=== PATIENT | female | born 1960 | race Caucasian/White ===

== ENCOUNTER 2023-12-09 13:05 | Outpatient (AMB) | payer OTHER, MEDICAID, SELFPAY ==
[2023-12-09 13:21] VITALS: BP 156/71; PULSE 53; RESP 18; TEMP 36.1; O2SAT 97; BMI 31.1
--- NOTE | 2023-12-09 13:21 | ORTHONT_ITS ---
Vital signs 12/09/23 13:21 Height 1.65 m Height Method Stated Weight 84.878 kg Weight Measurement Method Standing Scale BMI 31.1 BP 156/71 H Blood Pressure Source Automatic Cuff Blood Pressure Location Right Upper Arm Position Sitting Respiration 18 Pulse 53 L Pulse Source Monitor Temp 96.9 F Temp Source Temporal Artery Scan Pulse Oximetry (%) 97 Oxygen Delivery Method Room Air Med/Allergies Allergies & Medications Allergies No Known Allergies Allergy (Verified 12/09/23 13:24) Medication Reconciliation ibuprofen 800 mg tablet 800 mg PO Q8H 12/09/23 [History Confirmed 12/09/23] meloxicam 7.5 mg tablet 7.5 mg PO QDAY #45 tabs 12/09/23 [Rx] Subjective Visit Visit for: new patient and knee Immunization / Flu Flu Vaccine in the Last 12 Months: No Flu Vaccine Exclusion Criteria: Refused by Patient History of Present Illness Chief complaint: KNEE PAIN Jac is a pleasant 63-year-old female with bilateral knee pain. The left is a little worse than the right. This been ongoing for several years. She has previously seen Dr. Eric and had 2 injections. The only last about 1 month. She is tried ibuprofen. She has been unable to go to physical therapy as she has a very busy work schedule Personal History Occupation: [employer] Red flag PMH: none Pain Pain level (0-10): 4 Pain duration: COMES & GOES Pain location: inside (medial), outside (lateral), anterior and posterior Pain quality: dull and aching Pain timing: increases with activity Associated signs & symptoms: none Ambulatory data Ambulatory device: none Treatments Improvement with previous injections: No Improvement with PT: No Improvement with NSAIDS: n/a Review of Systems Review of Systems: All systems negative unless otherwise noted in HPI. Exam Exam Patient is in no acute distress and is cooperative with the examination today. Breathing is nonlabored. In no respiratory distress. Bilateral extremities were evaluated and demonstrates sensation intact to light touch. Palpable pedal pulses are present. No significant edema is present. Bilateral hips were examined. The patient has no pain with log roll of the hips. Internal rotation to 30 degrees and external rotation to 30 degrees is painless. Negative FADIR. The left knee was examined. The left knee is in [varus] alignment. Range of motion from [0-115] degrees. Knee is stable to varus and valgus as well as AP translation with <5mm. Patient has a [negative] McMurrays. There is [no] pain with patellofemoral compression and [no] crepitus noted. The knee is [tender] to palpation [medially]. The right knee was also examined. The right knee is in [varus] alignment. Range of motion from [0-120] degrees. Knee is stable to varus and valgus as well as AP translation with <5mm. Patient has a [negative] McMurrays. There is [no] pain with patellofemoral compression and [no] crepitus noted. The knee is [tender] to palpation [medially]. Patient has no recent weightbearing x-rays. We will order them Assessment and Plan Problem List (1) Degenerative arthritis of knee, bilateral: Status: Acute Plan Patient is a pleasant 63-year-old female with bilateral knee pain and bilateral knee osteoarthritis. We would like to get recent weightbearing x-rays to assess the severity. She is being seen by Dr. Eric in the past. We have also sent her prescription for meloxicam. We will see her in approximately 1 week to discuss different treatment options Office Procedures GNS Level of Care Nursing/Assessment Patient Status: Initial/New Patient Nursing Assessment/Reassesment: Medication Reconciliation, Update PMH in EMR and Vital Signs Coordination of Care: Complex Care and Chronic Disease 1-5, Education Complex Pt/Fam, Consent,records obtained, informed consent, Results/Orders obtained and Staff clarify orders New Patient Charge New Patient Point Assignment: [id number] New Patient Point Charge: EMERY GRINDER Level 3 ([id number]) Past Medical History Past Medical History Have you ever been diagnosed with any of the following: Respiratory Problems Smoking: No Smoking Exposure: No
== END 2023-12-09 13:39 | disposition home or self-care (01) ==
LOC: HODSRG 13:05
PROVIDERS: Supervising Provider Orthopaedic Surgery Adult Reconstructive Orthopaedic Surgery; Visit Provider Orthopaedic Surgery Adult Reconstructive Orthopaedic Surgery
DX: M17.0 Bilateral primary osteoarthritis of knee (principal); M25.562 Pain in left knee; M25.561 Pain in right knee
CPT/HCPCS: 99203; G0463

== ENCOUNTER 2023-12-30 10:37 | Outpatient (AMB) | payer OTHER, MEDICAID, SELFPAY ==
--- NOTE | 2023-12-30 11:12 | ORTHONT_ITS ---
Vital signs 12/30/23 11:19 Height 1.65 m Height Method Stated Weight 84.623 kg Weight Measurement Method Standing Scale BMI 31.1 BP 146/80 H Blood Pressure Source Automatic Cuff Blood Pressure Location Right Upper Arm Position Sitting Respiration 19 Pulse 52 L Pulse Source Monitor Temp 98.2 F Temp Source Temporal Artery Scan Pulse Oximetry (%) 96 Oxygen Delivery Method Room Air Med/Allergies Allergies & Medications Allergies No Known Allergies Allergy (Verified 12/30/23 11:20) Subjective Visit Visit for: follow up visit, knee (BILATERAL) and injections Immunization / Flu Flu Vaccine in the Last 12 Months: No Flu Vaccine Exclusion Criteria: Refused by Patient History of Present Illness Chief complaint: KNEE PAIN Jac is a pleasant 63-year-old female with bilateral knee pain. The left is a little worse than the right. This been ongoing for several years. She has previously seen Dr. Eric and had 2 injections. They only last about 1 month. Personal History Occupation: [employer] PMH: none Pain Pain level (0-10): 4 Pain duration: ALL DAY Pain location: inside (medial), outside (lateral), anterior and posterior Pain quality: sharp, dull and aching Pain timing: increases with activity Associated signs & symptoms: none Ambulatory data Ambulatory device: none Treatments Improvement with previous injections: No Improvement with PT: No Improvement with NSAIDS: n/a Review of Systems Review of Systems: All systems negative unless otherwise noted in HPI. Exam Exam Patient is in no acute distress and is cooperative with the examination today. Breathing is nonlabored. In no respiratory distress. Bilateral extremities were evaluated and demonstrates sensation intact to light touch. Palpable pedal pulses are present. No significant edema is present. Bilateral hips were examined. The patient has no pain with log roll of the hips. Internal rotation to 30 degrees and external rotation to 30 degrees is painless. Negative FADIR. The left knee was examined. The left knee is in [varus] alignment. Range of motion from [0-115] degrees. Knee is stable to varus and valgus as well as AP translation with <5mm. Patient has a [negative] McMurrays. There is [no] pain with patellofemoral compression and [no] crepitus noted. The knee is [tender] to palpation [medially]. The right knee was also examined. The right knee is in [varus] alignment. Range of motion from [0-120] degrees. Knee is stable to varus and valgus as well as AP translation with <5mm. Patient has a [negative] McMurrays. There is [no] pain with patellofemoral compression and [no] crepitus noted. The knee is [tender] to palpation [medially]. X-rays demonstrate mild medial joint space narrowing. There are minimal osteophytes Assessment and Plan Problem List (1) Degenerative arthritis of knee, bilateral: Status: Acute Plan Patient is a pleasant 63-year-old female with bilateral knee pain and bilateral knee osteoarthritis. The arthritis is of mild severity. We discussed nonoperative treatment. She would like bilateral knee cortisone injections Recommend knee cortisone injections as patient would like to proceed with conservative treatment at this time. The risks and benefits of the procedure were reviewed with the patient and patient gave verbal consent to continue with the procedure. Procedure: performed by Dr. Peng Using sterile technique the Bilateral knees were thoroughly prepped with alcohol, and approximately 1 cc of Kenalog 40 mg/mL and 4 cc of 1% lidocaine was injected into each knee without resistance into the medial tibial femoral joint space. The patient tolerated the procedure. Office Procedures GNS Level of Care Nursing/Assessment Patient Status: Established Patient Nursing Assessment/Reassesment: Medication Reconciliation, Update PMH in EMR and Vital Signs Coordination of Care: Complex Care and Chronic Disease 1-5, Education Complex Pt/Fam, Consent,records obtained, informed consent, 1 Ins Authorization, Results/Orders obtained and Staff clarify orders Established Patient Charge Established Patient Point Assignment: 110 Established Patient Point Charge: EP Level 3 (80-115) Surgical Proc/IM SQ injection Major Surgical Procedure: Yes (BILATERAL KNEE INJECTION) Medication Given Medication Given Medication Given: Yes Documented Dose Given: 8 Route: Infiitration Medication Given Medication Given Medication Given: Yes Documented Dose Given: 2 Route: Infiitration Office Meds Xylocaine 10 mg/mL (1 %) injection solution Performing Provider: Alvino Peng MD Performing Location: [facility] Administered by: Alvino Peng MD on 12/30/23 11:21 Dose Route Admin Location Dispensed Lot Number Expiration Date [facility] [employer] 40 mL Infiltration 40 mL [id number] 09/12/26 53958-553-69 [facility] triamcinolone acetonide 40 mg/mL suspension for injection Performing Provider: Alvino Peng MD Performing Location: [facility] Administered by: Alvino Peng MD on 12/30/23 11:21 Dose Route Admin Location Dispensed Lot Number Expiration Date [facility] [employer] 80 mg Infiltration 2 mL [id number] 09/12/25 [address]-3 [employer] Past Medical History Past Medical History Have you ever been diagnosed with any of the following: Respiratory Problems Smoking: No Smoking Exposure: No
[2023-12-30 11:19] VITALS: BP 146/80; PULSE 52; RESP 19; TEMP 36.8; O2SAT 96; BMI 31.1
== END 2023-12-30 11:18 | disposition home or self-care (01) ==
LOC: HODSRG 10:37
PROVIDERS: Supervising Provider Orthopaedic Surgery Adult Reconstructive Orthopaedic Surgery; Visit Provider Orthopaedic Surgery Adult Reconstructive Orthopaedic Surgery
DX: M17.0 Bilateral primary osteoarthritis of knee (principal); M25.562 Pain in left knee; M25.561 Pain in right knee
CPT/HCPCS: 20610; 99213; J3301; J3490; G0463

== ENCOUNTER 2024-04-05 10:09 | Outpatient (AMB) | payer OTHER, MEDICAID, SELFPAY ==
--- NOTE | 2024-04-05 10:36 | ORTHONT_ITS ---
Vital signs 04/05/24 10:37 Height 1.65 m Height Method Stated Weight 86.268 kg Weight Measurement Method Standing Scale BMI 31.6 BP 147/84 H Blood Pressure Source Automatic Cuff Blood Pressure Location Left Upper Arm Position Sitting Respiration 18 Pulse 58 L Pulse Source Monitor Temp 96.5 F L Temp Source Temporal Artery Scan Pulse Oximetry (%) 95 Oxygen Delivery Method Room Air Med/Allergies Allergies & Medications Allergies No Known Allergies Allergy (Verified 04/05/24 10:38) Medication Reconciliation ibuprofen 800 mg tablet 800 mg PO Q8H 12/09/23 [History Confirmed 04/05/24] meloxicam 7.5 mg tablet 7.5 mg PO QDAY #45 tabs 12/09/23 [Rx Confirmed 04/05/24] cyclobenzaprine 5 mg tablet 5 mg PO TID PRN muscle spasm #30 tabs 04/05/24 [Rx Confirmed 04/05/24] methylprednisolone 4 mg tablets in a dose pack (Medrol (Regan)) See Rx Instructions PO PER PKG DIR #21 tabs 04/05/24 [Rx Confirmed 04/05/24] Exam Exam Patient is in no acute distress and is cooperative with the examination today. Breathing is nonlabored. In no respiratory distress. Bilateral extremities were evaluated and demonstrates sensation intact to light touch. Palpable pedal pulses are present. No significant edema is present. Bilateral hips were examined. The patient has no pain with log roll of the hips. Internal rotation to 30 degrees and external rotation to 30 degrees is painless. Negative FADIR. The left knee was examined. The left knee is in [varus] alignment. Range of motion from [0-115] degrees. Knee is stable to varus and valgus as well as AP translation with <5mm. Patient has a [negative] McMurrays. There is [no] pain with patellofemoral compression and [no] crepitus noted. The knee is [tender] to palpation [medially]. The right knee was also examined. The right knee is in [varus] alignment. Range of motion from [0-120] degrees. Knee is stable to varus and valgus as well as AP translation with <5mm. Patient has a [negative] McMurrays. There is [no] pain with patellofemoral compression and [no] crepitus noted. The knee is [tender] to palpation [medially]. X-rays demonstrate mild medial joint space narrowing. There are minimal osteophytes Assessment and Plan Problem List (1) Degenerative arthritis of knee, bilateral: Status: Acute Plan Patient is a pleasant 63-year-old female with bilateral knee pain and bilateral knee osteoarthritis. She is done well with conservative treatment for her knee. She has recently developed radicular symptoms down her leg. She reports the pain is miserable. I prescribed her a Medrol Dosepak as well as a muscle relaxer. We will see how this goes. We will see her in approximately 3 to 4 weeks for follow-up. Office Procedures GNS Level of Care Nursing/Assessment Patient Status: Established Patient Nursing Assessment/Reassesment: Medication Reconciliation, Update PMH in EMR and Vital Signs Coordination of Care: Complex Care and Chronic Disease 1-5, Education Complex Pt/Fam, Consent,records obtained, informed consent, Results/Orders obtained and Staff clarify orders Established Patient Charge Established Patient Point Assignment: 95 Established Patient Point Charge: EP Level 3 (80-115) MA Intake Visit Data Collection New Patient or Established: Established Patient (seen at [facility] within 3 years) Reason for Visit:: BILATERAL KNEE PAIN Seen by Clinical Staff ONLY (RN/MA): No Security Installation Technician Required: No PCP or OBGYN visit in last 3 months: Yes Hx Now: No Do You Feel Safe at Home: Yes Authorities Contacted: N/A Questionairres Past Medical History Past Medical History Have you ever been diagnosed with any of the following: Respiratory Problems Smoking: No Smoking Exposure: No Subjective Visit Visit for: follow up visit and knee (BILATRERAL) Immunization / Flu Flu Vaccine in the Last 12 Months: No Flu Vaccine Exclusion Criteria: No Exclusion Criteria History of Present Illness Chief complaint: Left thigh pain Rashmi is a pleasant 63-year-old female with bilateral knee pain. The knees are she has done really well with conservative treatment. She reports that 1 week ago she started getting radicular pain down her thigh. It feels like a charley horse. It appears to be coming from her back as she pulled her back recently as well. Pain Pain level (0-10): 0 Pain location: other (specify) (THIGH) Ambulatory data Ambulatory device: none Treatments Improvement with previous injections: Yes Improvement with PT: No Improvement with NSAIDS: no Review of Systems Review of Systems: All systems negative unless otherwise noted in HPI.
[2024-04-05 10:37] VITALS: BP 147/84; PULSE 58; RESP 18; TEMP 35.8; O2SAT 95; BMI 31.6
== END 2024-04-05 10:46 | disposition home or self-care (01) ==
LOC: HODSRG 10:09
PROVIDERS: PCP Physician Assistant Medical; Referring Provider Physician Assistant Medical; Supervising Provider Orthopaedic Surgery Adult Reconstructive Orthopaedic Surgery; Visit Provider Orthopaedic Surgery Adult Reconstructive Orthopaedic Surgery
DX: M17.0 Bilateral primary osteoarthritis of knee (principal); M25.562 Pain in left knee; M25.561 Pain in right knee
CPT/HCPCS: 99213; G0463

== ENCOUNTER 2024-05-04 10:28 | Outpatient (AMB) | payer OTHER, MEDICAID, SELFPAY ==
[2024-05-04 10:45] VITALS: BP 144/82; PULSE 59; RESP 18; TEMP 36.6; O2SAT 94; BMI 32.0
--- NOTE | 2024-05-04 10:45 | PD.ORTHCLVIS ---
Vital signs 05/04/24 10:45 Height 1.65 m Height Method Stated Weight 87.146 kg Weight Measurement Method Standing Scale BMI 32.0 BP 144/82 H Blood Pressure Source Automatic Cuff Blood Pressure Location Right Upper Arm Position Sitting Respiration 18 Pulse 59 L Pulse Source Monitor Temp 97.8 F Temp Source Temporal Artery Scan Pulse Oximetry (%) 94 L Oxygen Delivery Method Room Air Med/Allergies Allergies & Medications Allergies No Known Allergies Allergy (Verified 05/04/24 10:46) Medication Reconciliation ibuprofen 800 mg tablet 800 mg PO Q8H 12/09/23 [History Confirmed 05/04/24] meloxicam 7.5 mg tablet 7.5 mg PO QDAY #45 tabs 12/09/23 [Rx Confirmed 05/04/24] cyclobenzaprine 5 mg tablet 5 mg PO TID PRN muscle spasm #30 tabs 04/05/24 [Rx Confirmed 05/04/24] methylprednisolone 4 mg tablets in a dose pack (Medrol (Regan)) See Rx Instructions PO PER PKG DIR #21 tabs 04/05/24 [Rx Confirmed 05/04/24] celecoxib 200 mg capsule 200 mg PO BID #60 caps 05/04/24 [Rx] Exam Exam Patient is in no acute distress and is cooperative with the examination today. Breathing is nonlabored. In no respiratory distress. Bilateral extremities were evaluated and demonstrates sensation intact to light touch. Palpable pedal pulses are present. No significant edema is present. Bilateral hips were examined. The patient has no pain with log roll of the hips. Internal rotation to 30 degrees and external rotation to 30 degrees is painless. Negative FADIR. The left knee was examined. The left knee is in [varus] alignment. Range of motion from [0-115] degrees. Knee is stable to varus and valgus as well as AP translation with <5mm. Patient has a [negative] McMurrays. There is [no] pain with patellofemoral compression and [no] crepitus noted. The knee is [tender] to palpation [medially]. The right knee was also examined. The right knee is in [varus] alignment. Range of motion from [0-120] degrees. Knee is stable to varus and valgus as well as AP translation with <5mm. Patient has a [negative] McMurrays. There is [no] pain with patellofemoral compression and [no] crepitus noted. The knee is [tender] to palpation [medially]. X-rays demonstrate mild medial joint space narrowing. There are minimal osteophytes Assessment and Plan Problem List (1) Degenerative arthritis of knee, bilateral: Status: Acute Plan Patient is a pleasant 63-year-old female with bilateral knee pain and bilateral knee osteoarthritis. She has done well with conservative treatment for her knee. She would like bilateral knee injections today Recommend knee cortisone injections as patient would like to proceed with conservative treatment at this time. The risks and benefits of the procedure were reviewed with the patient and patient gave verbal consent to continue with the procedure. Procedure: performed by Dr. Peng Using sterile technique the Bilateral knees were thoroughly prepped with alcohol, and approximately 1 cc of Kenalog 40 mg/mL and 4 cc of 1% lidocaine was injected into each knee without resistance into the medial tibial femoral joint space. The patient tolerated the procedure. Office Procedures GNS Level of Care Nursing/Assessment Patient Status: Established Patient Nursing Assessment/Reassesment: Medication Reconciliation, Update PMH in EMR and Vital Signs Coordination of Care: Complex Care and Chronic Disease 1-5, Education Complex Pt/Fam, Consent,records obtained, informed consent, Results/Orders obtained and Staff clarify orders Established Patient Charge Established Patient Point Assignment: 95 Established Patient Point Charge: EP Level 3 (80-115) MA Intake Visit Data Collection New Patient or Established: Established Patient (seen at [facility] within 3 years) Reason for Visit:: FOLLOW UP Seen by Clinical Staff ONLY (RN/MA): No Verbal consent obtained for Telemed visit?: No County Tax Assessor Required: No PCP or OBGYN visit in last 3 months: Yes Hx Now: No Do You Feel Safe at Home: Yes Authorities Contacted: N/A Questionairres Past Medical History Past Medical History Have you ever been diagnosed with any of the following: Respiratory Problems Smoking: No Smoking Exposure: No Subjective Visit Visit for: follow up visit Immunization / Flu Flu Vaccine in the Last 12 Months: Yes Flu Vaccine Exclusion Criteria: Already Received History of Present Illness Chief complaint: FOLLOW UP Rashmi is a pleasant 63-year-old female with bilateral knee pain. We treated Her with conservative treatment and she has been doing well. She recently had lumbar radiculopathy and we treated with a Medrol Dosepak and the pain went away. She would like new injections today if possible as it has helped in the past Personal History Red flag PMH: none BMI Counceling provided: Yes Pain Pain level (0-10): 2 Pain location: other (specify) (THIGH) Ambulatory data Ambulatory device: none Treatments Improvement with previous injections: No Improvement with PT: No Improvement with NSAIDS: n/a Review of Systems Review of Systems: All systems negative unless otherwise noted in HPI.
== END 2024-05-04 11:09 | disposition home or self-care (01) ==
LOC: HODSRG 10:28
PROVIDERS: PCP Physician Assistant Medical; Referring Provider Physician Assistant Medical; Supervising Provider Orthopaedic Surgery Adult Reconstructive Orthopaedic Surgery; Visit Provider Orthopaedic Surgery Adult Reconstructive Orthopaedic Surgery
DX: M17.0 Bilateral primary osteoarthritis of knee (principal)
CPT/HCPCS: 20610; 99213; J3301; J3490; G0463

== ENCOUNTER 2024-07-05 14:36 | Outpatient (AMB) | payer OTHER, MEDICAID, SELFPAY ==
--- NOTE | 2024-07-05 14:51 | ORTHONT_ITS ---
Vital signs 07/05/24 14:55 Height 1.65 m Height Method Stated Weight 88.621 kg Weight Measurement Method Standing Scale BMI 32.5 BP 123/77 Blood Pressure Source Automatic Cuff Blood Pressure Location Right Upper Arm Position Sitting Respiration 18 Pulse 71 Pulse Source Monitor Temp 97.2 F Temp Source Temporal Artery Scan Pulse Oximetry (%) 95 Oxygen Delivery Method Room Air Med/Allergies Allergies & Medications Allergies No Known Allergies Allergy (Verified 07/05/24 14:56) Medication Reconciliation ibuprofen 800 mg tablet 800 mg PO Q8H 12/09/23 [History Confirmed 07/05/24] meloxicam 7.5 mg tablet 7.5 mg PO QDAY #45 tabs 12/09/23 [Rx Confirmed 07/05/24] cyclobenzaprine 5 mg tablet 5 mg PO TID PRN muscle spasm #30 tabs 04/05/24 [Rx Confirmed 07/05/24] methylprednisolone 4 mg tablets in a dose pack (Medrol (Regan)) See Rx Instructions PO PER PKG DIR #21 tabs 04/05/24 [Rx Confirmed 07/05/24] celecoxib 200 mg capsule 200 mg PO BID #60 caps 05/04/24 [Rx Confirmed 07/05/24] Exam Exam Patient is in no acute distress and is cooperative with the examination today. Breathing is nonlabored. In no respiratory distress. Bilateral extremities were evaluated and demonstrates sensation intact to light touch. Palpable pedal pulses are present. No significant edema is present. Bilateral hips were examined. The patient has no pain with log roll of the hips. Internal rotation to 30 degrees and external rotation to 30 degrees is painless. Negative FADIR. The left knee was examined. The left knee is in [varus] alignment. Range of motion from [0-115] degrees. Knee is stable to varus and valgus as well as AP translation with <5mm. Patient has a [negative] McMurrays. There is [no] pain with patellofemoral compression and [no] crepitus noted. The knee is [tender] to palpation [medially]. The right knee was also examined. The right knee is in [varus] alignment. Range of motion from [0-120] degrees. Knee is stable to varus and valgus as well as AP translation with <5mm. Patient has a [negative] McMurrays. There is [no] pain with patellofemoral compression and [no] crepitus noted. The knee is [tender] to palpation [medially]. X-rays demonstrate mild medial joint space narrowing. There are minimal osteophytes Assessment and Plan Problem List (1) Degenerative arthritis of knee, bilateral: Status: Acute Plan Patient is a alma 63-year-old female with bilateral knee pain and bilateral knee osteoarthritis. She has done well with conservative treatment. We will continue conservative treatment at this time. She will call us should the pain get worse Office Procedures GNS Level of Care Nursing/Assessment Patient Status: Established Patient Nursing Assessment/Reassesment: Medication Reconciliation, Update PMH in EMR and Vital Signs Coordination of Care: Complex Care and Chronic Disease 1-5, Education Complex Pt/Fam, Consent,records obtained, informed consent, Results/Orders obtained and Staff clarify orders Established Patient Charge Established Patient Point Assignment: 95 Established Patient Point Charge: EP Level 3 (80-115) MA Intake Visit Data Collection New Patient or Established: Established Patient (seen at [facility] within 3 years) Reason for Visit:: FOLLOW UP Seen by Clinical Staff ONLY (RN/MA): No Verbal consent obtained for Telemed visit?: No Police Shift Commander Required: No PCP or OBGYN visit in last 3 months: Yes Hx Now: No Do You Feel Safe at Home: Yes Authorities Contacted: N/A Questionairres Past Medical History Past Medical History Have you ever been diagnosed with any of the following: Respiratory Problems Smoking: No Smoking Exposure: No Subjective Visit Visit for: follow up visit Immunization / Flu Flu Vaccine in the Last 12 Months: Yes Flu Vaccine Exclusion Criteria: Already Received History of Present Illness Chief complaint: FOLLOW UP Rashmi is a alma 63-year-old female with bilateral knee pain. We treated Her with conservative treatment and she has been doing well. She had a cortisone injection in her bilateral knees and a Medrol Dosepak a while ago that resulted in complete resolution of her leg pain Personal History Red flag PMH: none BMI Counceling provided: Yes Pain Pain level (0-10): 2 Pain location: other (specify) (THIGH) Ambulatory data Ambulatory device: none Treatments Improvement with previous injections: No Improvement with PT: No Improvement with NSAIDS: n/a Review of Systems Review of Systems: All systems negative unless otherwise noted in HPI.
[2024-07-05 14:55] VITALS: BP 123/77; PULSE 71; RESP 18; TEMP 36.2; O2SAT 95; BMI 32.5
== END 2024-07-05 14:54 | disposition home or self-care (01) ==
LOC: HODSRG 14:36
PROVIDERS: PCP Physician Assistant Medical; Referring Provider Physician Assistant Medical; Supervising Provider Orthopaedic Surgery Adult Reconstructive Orthopaedic Surgery; Visit Provider Orthopaedic Surgery Adult Reconstructive Orthopaedic Surgery
DX: M17.0 Bilateral primary osteoarthritis of knee (principal); M25.562 Pain in left knee; M25.561 Pain in right knee
CPT/HCPCS: 99213; G0463

== ENCOUNTER 2024-10-05 13:45 | Outpatient (AMB) | payer OTHER, MEDICAID, SELFPAY ==
--- NOTE | 2024-10-05 13:51 | ORTHONT_ITS ---
Vital signs 10/05/24 13:52 Height 1.65 m Height Method Measured Weight 84.595 kg Weight Measurement Method Standing Scale BMI 31.0 BP 128/82 Blood Pressure Source Automatic Cuff Blood Pressure Location Left Upper Arm Position Sitting Respiration 18 Pulse 68 Pulse Source Monitor Temp 97.6 F Temp Source Temporal Artery Scan Pulse Oximetry (%) 96 Oxygen Delivery Method Room Air Med/Allergies Allergies & Medications Allergies No Known Allergies Allergy (Verified 10/05/24 13:52) Medication Reconciliation ibuprofen 800 mg tablet 800 mg PO Q8H 12/09/23 [History Confirmed 10/05/24] meloxicam 7.5 mg tablet 7.5 mg PO QDAY #45 tabs 12/09/23 [Rx Confirmed 10/05/24] cyclobenzaprine 5 mg tablet 5 mg PO TID PRN muscle spasm #30 tabs 04/05/24 [Rx Confirmed 10/05/24] methylprednisolone 4 mg tablets in a dose pack (Medrol (Regan)) See Rx Instructions PO PER PKG DIR #21 tabs 04/05/24 [Rx Confirmed 10/05/24] celecoxib 200 mg capsule 200 mg PO BID #60 caps 08/14/24 [Rx Confirmed 10/05/24] Exam Exam Patient is in no acute distress and is cooperative with the examination today. Breathing is nonlabored. In no respiratory distress. Bilateral extremities were evaluated and demonstrates sensation intact to light touch. Palpable pedal pulses are present. No significant edema is present. Bilateral hips were examined. The patient has no pain with log roll of the hips. Internal rotation to 30 degrees and external rotation to 30 degrees is painless. Negative FADIR. The left knee was examined. The left knee is in [varus] alignment. Range of motion from [0-115] degrees. Knee is stable to varus and valgus as well as AP translation with <5mm. Patient has a [negative] McMurrays. There is [no] pain with patellofemoral compression and [no] crepitus noted. The knee is [tender] to palpation [medially]. The right knee was also examined. The right knee is in [varus] alignment. Range of motion from [0-120] degrees. Knee is stable to varus and valgus as well as AP translation with <5mm. Patient has a [negative] McMurrays. There is [no] pain with patellofemoral compression and [no] crepitus noted. The knee is [tender] to palpation [medially]. X-rays demonstrate mild medial joint space narrowing. There are minimal osteophytes Assessment and Plan Problem List (1) Degenerative arthritis of knee, bilateral: Status: Acute Plan Patient is a pleasant 63-year-old female with bilateral knee pain and bilateral knee osteoarthritis. She has done well with conservative treatment. We will continue conservative treatment at this time. We will get authorization for gel injections at the next visit of both knees Office Procedures GNS Level of Care Nursing/Assessment Patient Status: Established Patient Nursing Assessment/Reassesment: Medication Reconciliation, Orthostatic Vitals, Update PMH in EMR and Vital Signs Coordination of Care: Complex Care and Chronic Disease 1-5, Education Complex Pt/Fam, Consent,records obtained, informed consent, Results/Orders obtained and Staff clarify orders Established Patient Charge Established Patient Point Assignment: 105 Established Patient Point Charge: Level 3 (80-115) MA Intake Visit Data Collection New Patient or Established: Established Patient (seen at [facility] within 3 years) Reason for Visit:: FOLLOW UP Seen by Clinical Staff ONLY (RN/MA): No Verbal consent obtained for Telemed visit?: No Support Services Rep Required: No PCP or OBGYN visit in last 3 months: Yes Hx Now: No Do You Feel Safe at Home: Yes Authorities Contacted: N/A Questionairres Past Medical History Past Medical History Have you ever been diagnosed with any of the following: Respiratory Problems Smoking: No Smoking Exposure: No Subjective Visit Visit for: follow up visit Immunization / Flu Flu Vaccine in the Last 12 Months: Yes Flu Vaccine Exclusion Criteria: Already Received History of Present Illness Chief complaint: FOLLOW UP Rashmi is a pleasant 63-year-old female with bilateral knee pain. We treated Her with conservative treatment and she has been doing well. She does have pain in both knees but does not want an injection. She is still functioning well Personal History Red flag PMH: none BMI Counceling provided: Yes Pain Pain level (0-10): 4 Pain location: other (specify) (THIGH) Ambulatory data Ambulatory device: none Treatments Improvement with previous injections: No Improvement with PT: No Improvement with NSAIDS: n/a Review of Systems Review of Systems: All systems negative unless otherwise noted in HPI.
[2024-10-05 13:52] VITALS: BP 128/82; PULSE 68; RESP 18; TEMP 36.4; O2SAT 96; BMI 31.0
== END 2024-10-05 13:59 | disposition home or self-care (01) ==
LOC: HODSRG 13:45
PROVIDERS: PCP Physician Assistant Medical; Referring Provider Physician Assistant Medical; Supervising Provider Orthopaedic Surgery Adult Reconstructive Orthopaedic Surgery; Visit Provider Orthopaedic Surgery Adult Reconstructive Orthopaedic Surgery
DX: M17.0 Bilateral primary osteoarthritis of knee (principal); M25.562 Pain in left knee; M25.561 Pain in right knee
CPT/HCPCS: 99213; G0463

== ENCOUNTER 2025-02-01 10:55 | Outpatient (AMB) | payer BC, MEDICAID, SELFPAY ==
--- NOTE | 2025-02-01 11:09 | PD.ORTHCLVIS ---
Vital signs 02/01/25 11:10 Height 1.65 m Height Method Stated Weight 75.07 kg Weight Measurement Method Standing Scale BMI 27.6 BP 126/79 Blood Pressure Source Automatic Cuff Blood Pressure Location Right Upper Arm Position Sitting Respiration 18 Pulse 68 Pulse Source Monitor Temp 97.5 F Temp Source Temporal Artery Scan Pulse Oximetry (%) 97 Oxygen Delivery Method Room Air Med/Allergies Allergies & Medications Allergies No Known Allergies Allergy (Verified 02/01/25 11:14) Medication Reconciliation ibuprofen 800 mg tablet 800 mg PO Q8H 12/09/23 [History Confirmed 02/01/25] meloxicam 7.5 mg tablet 7.5 mg PO QDAY #45 tabs 12/09/23 [Rx Confirmed 02/01/25] cyclobenzaprine 5 mg tablet 5 mg PO TID PRN muscle spasm #30 tabs 04/05/24 [Rx Confirmed 02/01/25] methylprednisolone 4 mg tablets in a dose pack (Medrol (Regan)) See Rx Instructions PO PER PKG DIR #21 tabs 04/05/24 [Rx Confirmed 02/01/25] celecoxib 200 mg capsule 200 mg PO BID #90 caps 02/01/25 [Rx Confirmed 02/01/25] Exam Exam Patient is in no acute distress and is cooperative with the examination today. Breathing is nonlabored. In no respiratory distress. Bilateral extremities were evaluated and demonstrates sensation intact to light touch. Palpable pedal pulses are present. No significant edema is present. Bilateral hips were examined. The patient has no pain with log roll of the hips. Internal rotation to 30 degrees and external rotation to 30 degrees is painless. Negative FADIR. The left knee was examined. The left knee is in [varus] alignment. Range of motion from [0-115] degrees. Knee is stable to varus and valgus as well as AP translation with <5mm. Patient has a [negative] McMurrays. There is [no] pain with patellofemoral compression and [no] crepitus noted. The knee is [tender] to palpation [medially]. The right knee was also examined. The right knee is in [varus] alignment. Range of motion from [0-120] degrees. Knee is stable to varus and valgus as well as AP translation with <5mm. Patient has a [negative] McMurrays. There is [no] pain with patellofemoral compression and [no] crepitus noted. The knee is [tender] to palpation [medially]. X-rays demonstrate mild medial joint space narrowing. There are minimal osteophytes Assessment and Plan Problem List (1) Degenerative arthritis of knee, bilateral: Status: Acute Plan Patient is a pleasant 63-year-old female with bilateral knee pain and bilateral knee osteoarthritis. She has done well with conservative treatment. Recommend knee cortisone injection as patient would like to proceed with conservative treatment at this time. The risks and benefits of the procedure were reviewed with the patient and patient gave verbal consent to continue with the procedure. Procedure: performed by Dr. Peng Using sterile technique the Right knee was thoroughly prepped with alcohol, and approximately 1 cc of Depo-Medrol 80mg/mL and 4 cc of 0.2% ropivacaine was injected without resistance into the medial tibial femoral joint space. The patient tolerated the procedure. Recommend knee cortisone injection as patient would like to proceed with conservative treatment at this time. The risks and benefits of the procedure were reviewed with the patient and patient gave verbal consent to continue with the procedure. Procedure: performed by Dr. Peng Using sterile technique the leftknee was thoroughly prepped with alcohol, and approximately 1 cc of Depo-Medrol 80mg/mL and 4 cc of 0.2% ropivacaine was injected without resistance into the medial tibial femoral joint space. The patient tolerated the procedure. Office Procedures GNS Level of Care Nursing/Assessment Patient Status: Established Patient Nursing Assessment/Reassesment: Medication Reconciliation, Update PMH in EMR and Vital Signs Coordination of Care: Complex Care and Chronic Disease 1-5, Education Complex Pt/Fam, Consent,records obtained, informed consent, Results/Orders obtained and Staff clarify orders Established Patient Charge Established Patient Point Assignment: 95 Surgical Proc/IM SQ injection Minor Surgical Procedure: Yes (KNEE INJECTION) Medication Given Medication Given Medication Given: Yes Documented Dose Given: 2 Route: Infiitration Medication Given Medication Given Medication Given: Yes Documented Dose Given: 1 Route: Infiitration Office Meds methylprednisolone acetate 80 mg/mL suspension for injection Performing Provider: Alvino Peng MD Performing Location: [facility] Administered by: Alvino Peng MD on 02/01/25 11:15 Dose Route Admin Location Dispensed Lot Number Expiration Date Package [facility] [employer] 160 mg intra-articular KNEE 2 mL [id number] 09/14/26 [address]-5 [id number] [employer] ropivacaine (PF) 2 mg/mL (0.2 %) injection solution Performing Provider: Alvino Peng MD Performing Location: [facility] Administered by: Alvino Peng MD on 02/01/25 11:15 Dose Route Admin Location Dispensed Lot Number Expiration Date Package [facility] [employer] Flu[employer] Lights 40 mL Infiltration KNEE 40 mL [id number] 06/14/26 6124-1296-70 [id number] JOVANY NIETO MA Intake Visit Data Collection New Patient or Established: Established Patient (seen at [facility] [place] [place] within 3 years) Reason for Visit:: BILATERAL KNEE INJECTIONS Seen by Clinical Staff ONLY (RN/MA): No Verbal consent obtained for Telemed visit?: No [employer]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 We treated Her with conservative treatment and she has been doing well. She did well with the last cortisone injections and would like US today Personal History Red flag PMH: none BMI Counceling provided: Yes Pain Pain level (0-10): 4 Pain location: other (specify) (THIGH) Ambulatory data Ambulatory device: none Treatments Improvement with previous injections: No Improvement with PT: No Improvement with NSAIDS: n/a Review of Systems Review of Systems: All systems negative unless otherwise noted in HPI.
[2025-02-01 11:10] VITALS: BP 126/79; PULSE 68; RESP 18; TEMP 36.4; O2SAT 97; BMI 27.6
== END 2025-02-01 11:31 | disposition home or self-care (01) ==
PROVIDERS: PCP Physician Assistant Medical; Referring Provider Physician Assistant Medical; Supervising Provider Orthopaedic Surgery Adult Reconstructive Orthopaedic Surgery; Visit Provider Orthopaedic Surgery Adult Reconstructive Orthopaedic Surgery
DX: M17.0 Bilateral primary osteoarthritis of knee (principal); M25.562 Pain in left knee; M25.561 Pain in right knee
CPT/HCPCS: 20610; 99213; J1010; J2795; G0463